=== PATIENT | male | born 1985 | race Caucasian/White ===

== ENCOUNTER 2017-02-24 22:32 | Emergency (ER) | payer OTHER ==
[~2017-02-24] VITALS: Ht 170.2 cm; Wt 61.7 kg
--- NOTE | 2017-02-24 23:24 | NUR ---
PATIENT WALKED INTO ER WITH SORE THROAT AND FREQUENT COUGHING. C/O SOB AT TIMES. O2 100% ON RA AT THIS TIME.
--- NOTE | 2017-02-24 23:46 | NUR ---
DR PETERSEN AT BEDSIDE FOR EVAL.
[2017-02-25 00:12] VITALS: BP 125/90
--- NOTE | 2017-02-25 00:13 | NUR ---
Patient discharged to home in stable conditon. Written and verbal after care instructions given. Patient verbalizes understanding of instructions. LEFT WITH STABLE GAIT, ACCOMPLANIED BY FAMILY.
== END 2017-02-25 00:13 | disposition home or self-care (01) ==
LOC: ER 22:32
DX: J40 Bronchitis, not specified as acute or chronic (principal)
CPT/HCPCS: 71010; A4663

== ENCOUNTER 2019-04-14 23:42 | Emergency (ER) | payer MEDICAID, OTHER ==
[~2019-04-14] VITALS: Ht 167.6 cm; Wt 62.6 kg
--- NOTE | 2019-04-15 00:07 | NUR ---
seen and examined by MARY ANNE MUELLER at bedside,spoked with patient and patients girlfriend .
[2019-04-15] MEDS ORDERED: ONDANSETRON ODT 4 MG TAB.RAPDIS SL ONE (00:15)
[2019-04-15] MEDS ORDERED: ONDANSETRON HCL 4 MG TABLET ONE (00:16)
--- NOTE | 2019-04-15 00:16 | NUR ---
zofran odt 4mg given SL , tolerated . no nausea no vomitting .
[2019-04-15] MEDS ORDERED: ONDANSETRON ODT 4 MG TAB.RAPDIS ONE (00:19)
[2019-04-15 00:24] LABS: BASOPHILS # (AUTO) 0.1 K/uL (0.0-8.0); BASOPHILS % (AUTO) 1.2 % (0.0-2.0); EOSINOPHILS # (AUTO) 0.1 K/uL (0.0-0.7); EOSINOPHILS % (AUTO) 0.9 % (0.0-7.0); HEMOGLOBIN 13.8 g/dL (12.5-16.3); LYMPHOCYTES # (AUTO) 2.8 K/uL (20.0-40.0); LYMPHOCYTES % (AUTO) 35.2 % (20.5-51.5); MEAN CORPUSCULAR HEMOGLOBIN 23.7 uug (23.8-33.4); MEAN CORPUSCULAR HGB CONC 33 g/dL (32.5-36.3); MEAN CORPUSCULAR VOLUME 72.4 fL (73.0-96.2); MONOCYTES # (AUTO) 0.7 K/uL (2.0-10.0); MONOCYTES % (AUTO) 9.2 % (0.0-11.0); NEUTROPHILS # (AUTO) 4.3 K/uL (1.8-8.9); NEUTROPHILS % (AUTO) 53.5 % (38.5-71.5); PLATELET COUNT (AUTO) 308 K/uL (152-348)
[2019-04-15 00:28] LABS: CREATININE 1.1 mg/dL (0.6-1.3); POTASSIUM 3.9 mmol/L (3.5-5.1)
[2019-04-15 00:34] LABS: BILIRUBIN,DIRECT 0.1 mg/dL (0.0-0.2); BILIRUBIN,TOTAL 0.3 mg/dL (0.2-1.0); TOTAL PROTEIN, SERUM 8.1 g/dL (6.4-8.2)
--- NOTE | 2019-04-15 00:37 | NUR ---
urine collected and send to the lab , patient steady of gait and able to walk to the bathroom and back to the room .
[2019-04-15 00:38] LABS: *BILIRUBIN,URIN NEGATIVE (NEGATIVE); *BLOOD, URINE NEGATIVE (NEGATIVE); *CLARITY,URINE CLEAR (CLEAR); *COLOR,URINE YELLOW (YELLOW); *KETONES,URINE NEGATIVE (NEGATIVE); *UROBILINOGEN,URINE 0.2 E.U./dl (NORMAL); LEUKOCYTE ESTERASE ,URINE NEGATIVE (NEGATIVE); NITRITE, URINE NEGATIVE (NEGATIVE); UGLUCOSE NEGATIVE (NEGATIVE)
[2019-04-15 00:44] LABS: LYMPHOCYTES % (MANUAL) 36 % (20-40); MONOCYTES % (MANUAL) 10 % (2-10); NEUTROPHILS % (MANUAL) 54 % (42-75)
--- NOTE | 2019-04-15 01:30 | NUR ---
ultra sound of the gallbladder completed by techician at bedside and patient tolerated the test , U/S techician discussed result with MARY ANNE MUELLER .
--- NOTE | 2019-04-15 01:31 | NUR ---
given 2 cup of water patient tolerated no nausea no vomitting noted . hob up continue to monitor for n/v. Addendum: 04/15/19 at 0150 by CHYAA 1 glass of water tolerated no n/v.
--- NOTE | 2019-04-15 01:59 | NUR ---
:ERVIN at bedside and discussed findings with patient and patient girlfriend . verbalized understanding with the labs ,ct of the cheat and abdomen and pelvis and U/S RESULTS .
--- NOTE | 2019-04-15 02:06 | NUR ---
Patient discharged to home in stable conditon. Written and verbal after care instructions given. Patient verbalizes understanding of instructions.V/S WNL . NO N/V .WENT HOME WITH ALL BELONGINGS .WENT HOME WITH GIRLFRIEND .AMBULATORY .
[2019-04-15 02:08] VITALS: BP 135/78
== END 2019-04-15 02:10 | disposition home or self-care (01) ==
LOC: ER 23:46
DX: R13.10 Dysphagia, unspecified (principal); R11.10 Vomiting, unspecified; F17.290 Nicotine dependence, other tobacco product, uncomplicated; Z71.6 Tobacco abuse counseling
CPT/HCPCS: 36415; 70030-TC; 71250; 83690; 85025; A4663; Q0162

== ENCOUNTER 2021-08-24 20:10 | Emergency (ER) | payer MEDICAID, OTHER ==
[~2021-08-24] VITALS: Ht 170.2 cm; Wt 61.2 kg
--- NOTE | 2021-08-24 20:32 | NUR ---
pt a/o in bed. complains of SOB. pt able to speak in complete sentences.
--- NOTE | 2021-08-24 20:47 | NUR ---
Dr. Causey at bedside for MSE.
[2021-08-24] MEDS ORDERED: ASPIRIN 81 MG TAB.CHEW PO ONE (21:00)
[2021-08-24] MEDS ORDERED: ASPIRIN 81 MG TAB.CHEW ONE (21:04)
[2021-08-24 21:13] LABS: HEMATOCRIT 43.2 % (36.7-47.1); MEAN CORPUSCULAR HEMOGLOBIN 29.1 uug (23.8-33.4); MEAN CORPUSCULAR VOLUME 81.7 fL (73.0-96.2); PLATELET COUNT (AUTO) 306 K/uL (152-348)
[2021-08-24 21:35] LABS: POTASSIUM 3.8 mmol/L (3.5-5.1)
[2021-08-24 21:48] LABS: BILIRUBIN,DIRECT 0.1 mg/dL (0.0-0.2); BILIRUBIN,TOTAL 0.4 mg/dL (0.2-1.0); TOTAL PROTEIN, SERUM 7.8 g/dL (6.4-8.2)
--- NOTE | 2021-08-24 23:06 | NUR ---
Dr. Causey at bedside to update pt on treatment plan.
--- NOTE | 2021-08-25 01:12 | NUR ---
Patient discharged to home in stable condition. Written and verbal after care instructions given. Patient verbalizes understanding of instructions. Stressed follow up or return to ER for worsening s/s. pt ambulated with steady gait. denies pain, no SOB.
[2021-08-25 01:13] VITALS: BP 128/71
== END 2021-08-25 01:14 | disposition home or self-care (01) ==
LOC: ER 20:12
DX: R07.9 Chest pain, unspecified (principal); R06.00 Dyspnea, unspecified; F17.290 Nicotine dependence, other tobacco product, uncomplicated
CPT/HCPCS: 36415; 70030-TC; 71045; 85025; 85730; 93005; A4663